=== PATIENT | female | born 1990 | race Caucasian/White ===

== ENCOUNTER 2016-10-23 15:40 | Emergency (ER) | payer MEDICAID ==
[~2016-10-23 15:40] MED LIST: IBUPROFEN600 MG PO; PERCOCET 5-3251 TAB PO; PRENATAL COMPLE1 TAB PO
[2016-10-23 16:27] LABS: BASOPHILS 0.2 % (0-2); EOSINOPHILS 0.9 % (0-7); HEMATOCRIT 40.6 % (36.0-48.0); HEMOGLOBIN 14.1 g/dL (12-16); IMMATURE GRANULOCYTES 0.3 % (0-5); LYMPHOCYTES 25.7 % (15-50); MCH 30.5 pg (26.0-34.0); MCHC 34.7 g/dL (31.0-37.0); MCV 87.9 fL (80.0-100.0); MEAN PLATELET VOLUME 10.2 fL (7.4-10.4); MONOCYTES 5.6 % (2-11); NEUTROPHILS 67.3 % (40-80); RBC 4.62 10x6/uL (4.00-5.40); WBC 18.1 10x3/uL (4.8-10.8)
[2016-10-23 16:33] LABS: PLATELET COUNT 248 10x3/uL (130-400)
[2016-10-23 17:06] LABS: INR 0.91 (0.85-1.17); PROTIME 12.1 SECONDS (11.6-15.0)
[2016-10-23 17:15] LABS: ALKALINE PHOSPHATASE 84 U/L (46-116); ALT (SGPT) 16 U/L (10-68); BILIRUBIN - TOTAL 0.19 mg/dL (0.2-1.3); CHLORIDE - SERUM 101 mmol/L (98-107); POTASSIUM - SERUM 3.6 mmol/L (3.5-5.1); PROTEIN - SERUM 7.3 g/dL (6.4-8.2); SODIUM 139 mmol/L (136-145); UREA NITROGEN 1 mg/dL (7-18)
[2016-10-23 17:23] LABS: CALC OSMOLALITY 272 mosm/kg (275-300); CALCIUM 9.3 mg/dL (8.5-10.1); CREATININE - SERUM 0.7 mg/dL (0.6-1.3); GLUCOSE 84 mg/dL (74-106); eGFR NON AFRICAN AMERICAN > 90 mL/min (90-120)
== END 2016-10-23 18:24 | disposition home or self-care (01) ==
LOC: D.ER 15:40
PROVIDERS: Nurse Practitioner Family
DX: J06.9 Acute upper respiratory infection, unspecified (principal); R05 Cough; R07.81 Pleurodynia

== ENCOUNTER 2016-12-19 18:13 | Emergency (ER) | payer MEDICAID ==
[2016-12-19 19:06] LABS: BASOPHILS 1.1 % (0-2); EOSINOPHILS 1.1 % (0-7); HEMATOCRIT 44.6 % (36.0-48.0); HEMOGLOBIN 15.5 g/dL (12-16); LYMPHOCYTES 43.5 % (15-50); MCHC 34.8 g/dL (31.0-37.0); MCV 86.4 fL (80.0-100.0); MEAN PLATELET VOLUME 10.9 fL (7.4-10.4); MONOCYTES 11.9 % (2-11); NEUTROPHILS 42.4 % (40-80); RBC 5.16 10x6/uL (4.00-5.40); RDW 13.3 % (11.5-14.5); WBC 6.6 10x3/uL (4.8-10.8)
[2016-12-19 19:10] LABS: PLATELET COUNT 147 10x3/uL (130-400)
[2016-12-19 19:32] LABS: CALC OSMOLALITY 277 mosm/kg (275-300); CALCIUM 9.4 mg/dL (8.5-10.1); CARBON DIOXIDE 26.1 mmol/L (21.0-32.0); CHLORIDE - SERUM 102 mmol/L (98-107); CREATININE - SERUM 0.6 mg/dL (0.6-1.3); GLUCOSE 117 mg/dL (74-106); POTASSIUM - SERUM 3.3 mmol/L (3.5-5.1); SODIUM 140 mmol/L (136-145); UREA NITROGEN 8 mg/dL (7-18); eGFR NON AFRICAN AMERICAN > 90 mL/min (90-120)
== END 2016-12-19 20:01 | disposition home or self-care (01) ==
LOC: D.ER 18:13
PROVIDERS: Nurse Practitioner Acute Care
DX: K52.9 Noninfective gastroenteritis and colitis, unspecified (principal); F17.200 Nicotine dependence, unspecified, uncomplicated

== ENCOUNTER 2016-12-30 20:45 | Emergency (ER) | payer MEDICAID ==
[2016-12-30 21:11] LABS: APPEARANCE HAZY (CLEAR); COLOR DK YELLOW (YELLOW)
[2016-12-30 21:12] LABS: BILIRUBIN NEGATIVE (NEGATIVE); GLUCOSE NEGATIVE (NEGATIVE); KETONE NEGATIVE (NEGATIVE); LEUKOCYTE ESTERASE TRACE (NEGATIVE); NITRITE NEGATIVE (NEGATIVE); PROTEIN NEGATIVE (NEGATIVE); SPECIFIC GRAVITY 1.015 (1.005-1.020); UROBILINOGEN NORMAL (NORMAL)
[2016-12-30 21:19] LABS: AMORPHOUS SEDIMENT <1+ /lpf (NONE SEEN); BACTERIA MODERATE /hpf (NONE SEEN); GRANULAR CAST 0-5 /lpf (NONE SEEN); HYALINE CAST 0-5 /lpf (NONE SEEN); MUCUS >1+ /lpf (NONE SEEN); RED CELLS - URINE OCC /hpf (0-5)
[2016-12-30 22:26] LABS: BASOPHILS 1.7 % (0-2); EOSINOPHILS 1.1 % (0-7); HEMATOCRIT 39.9 % (36.0-48.0); HEMOGLOBIN 13.7 g/dL (12-16); IMMATURE GRANULOCYTES 0.5 % (0-5); LYMPHOCYTES 56.4 % (15-50); MCH 29.3 pg (26.0-34.0); MCHC 34.3 g/dL (31.0-37.0); MCV 85.4 fL (80.0-100.0); MEAN PLATELET VOLUME 10.6 fL (7.4-10.4); MONOCYTES 9.9 % (2-11); NEUTROPHILS 30.4 % (40-80); PLATELET COUNT 141 10x3/uL (130-400); RBC 4.67 10x6/uL (4.00-5.40); WBC 10.1 10x3/uL (4.8-10.8)
[2016-12-30 22:33] LABS: HCG SERUM NEGATIVE (NEGATIVE)
[2016-12-30 22:37] LABS: ALKALINE PHOSPHATASE 133 U/L (46-116); ALT (SGPT) 85 U/L (10-68); CALC OSMOLALITY 281 mosm/kg (275-300); CALCIUM 8.5 mg/dL (8.5-10.1); CARBON DIOXIDE 30.3 mmol/L (21.0-32.0); CHLORIDE - SERUM 105 mmol/L (98-107); CREATININE - SERUM 0.8 mg/dL (0.6-1.3); GLUCOSE 107 mg/dL (74-106); POTASSIUM - SERUM 3.7 mmol/L (3.5-5.1); PROTEIN - SERUM 6.9 g/dL (6.4-8.2); SODIUM 142 mmol/L (136-145); UREA NITROGEN 10 mg/dL (7-18); eGFR NON AFRICAN AMERICAN > 90 mL/min (90-120)
== END 2016-12-31 01:11 | disposition home or self-care (01) ==
LOC: D.ER 20:45
PROVIDERS: Emergency Medicine
DX: N39.0 Urinary tract infection, site not specified (principal); F17.200 Nicotine dependence, unspecified, uncomplicated

== ENCOUNTER 2018-01-29 21:01 | Inpatient (IN) | payer MEDICAID ==
[~2018-01-29] VITALS: Ht 167.6 cm; Wt 69.4 kg
--- NOTE | ~2018-01-29 | DS ---
PATIENT:IESHA REYNOSO :89 MEDICAL RECORD: [id number] DISCHARGE SUMMARY ADMISSION DATE: 01/29/18 DISCHARGE DATE: 01/31/18 DATE OF ADMISSION: 01/29/2018 DATE OF DISCHARGE: 01/31/2018 ADMISSION DIAGNOSIS: at term. DISCHARGE DIAGNOSIS: Mother delivered at term. PROCEDURE: Induction of labor with vaginal delivery. ATTENDING: Lita Jensen MD HISTORY OF PRESENT ILLNESS: See the H&P in the chart. SUMMARY OF HOSPITALIZATION: The patient was admitted and underwent induction of labor without incident. The patient delivered and on day #1 is doing well without complaint. The patient will be discharged home on ibuprofen for pain management. We discussed contraception and she has been advised to observe pelvic rest for 6 weeks. Standard precautions have been reviewed. TRANSINT:[id number] Voice Confirmation ID: [id number] DOCUMENT ID: [id number] LITA JENSEN MD at 1615 CC: [id number] DICTATION DATE: 01/31/18 0442 RAG COLLECTOR: 01/31/18 1357 DIS IN 01/31/18 [facility] [address] [place] [address]
--- NOTE | ~2018-01-29 | OP ---
PATIENT NAME: IESHA REYNOSO MEDICAL RECORD: [id number] :89 LOCATION:[id number] ADMISSION DATE:01/29/18 SURGEON: REJI JENSEN MD DATE OF OPERATION: 01/30/2018 PREDELIVERY DIAGNOSIS: at term. POSTDELIVERY DIAGNOSIS: Mother delivered at term. PROCEDURE: Induction of labor with vaginal delivery. ATTENDING: Reji Jensen MD ANESTHETIC: None. FINDINGS: Viable male infant. OLMAN presentation. Shoulder dystocia encountered, relieved with Josh and suprapubic from the left. First-degree laceration without repair of the vaginal mucosa. Apgars were 8 and 9, and the weight is still pending at the time of this dictation. Placenta was delivered spontaneous and intact. ESTIMATED BLOOD LOSS: 300 cc. DISPOSITION: Mother and infant are both recovered in the room. TRANSINT:[id number] Voice Confirmation ID: [id number] DOCUMENT ID: [id number] REJI JENSEN MD at 1445 CC: [id number] DICTATION DATE: 01/30/18923 HYDRAULIC PLUMBER: 01/30/18 1131 ADM IN [facility] [address] [place] [address]
[2018-01-29] MEDS ORDERED: MYCOLOG CREAM15 GM TOPICAL (22:37)
[2018-01-29 22:38] VITALS: BP 106/88; BMI 24.7
[2018-01-29 23:28] LABS: APPEARANCE CLEAR (CLEAR); BILIRUBIN NEGATIVE (NEGATIVE); COLOR YELLOW (YELLOW); GLUCOSE NEGATIVE (NEGATIVE); KETONE NEGATIVE (NEGATIVE); NITRITE NEGATIVE (NEGATIVE); PROTEIN NEGATIVE (NEGATIVE); SPECIFIC GRAVITY 1.005 (1.005-1.020); UROBILINOGEN NORMAL (NORMAL)
[2018-01-29 23:29] LABS: HEMATOCRIT 33.8 % (36.0-48.0); HEMOGLOBIN 11.7 g/dL (12-16); MCH 29.4 pg (26.0-34.0); MCHC 34.6 g/dL (31.0-37.0); MCV 84.9 fL (80.0-100.0); MEAN PLATELET VOLUME 11.5 fL (7.4-10.4); RBC 3.98 10x6/uL (4.00-5.40); RDW 13.7 % (11.5-14.5); WBC 11.5 10x3/uL (4.8-10.8)
[2018-01-30 01:11] LABS: UDS - AMPHET NEGATIVE QUAL (NEGATIVE); UDS - BARB NEGATIVE QUAL (NEGATIVE); UDS - BENZO NEGATIVE QUAL (NEGATIVE); UDS - COCAINE NEGATIVE QUAL (NEGATIVE); UDS - OPIATE NEGATIVE QUAL (NEGATIVE); UDS - PCP NEGATIVE QUAL (NEGATIVE); UDS - THC NEGATIVE QUAL (NEGATIVE)
[2018-01-30 13:43] VITALS: Ht 167.6 cm; Wt 69.4 kg
[2018-01-30 23:30] VITALS: BP 94/56
[2018-01-31 06:16] LABS: RAPID PLASMA REAGIN Non Reactive (Non Reactive)
[2018-01-31 07:00] LABS: MCH 28.4 pg (26.0-34.0); MCHC 32.5 g/dL (31.0-37.0); MEAN PLATELET VOLUME 11.2 fL (7.4-10.4); RDW 13.6 % (11.5-14.5)
[2018-01-31 07:01] LABS: HEMATOCRIT 24.3 % (36.0-48.0); HEMOGLOBIN 7.9 g/dL (12-16); MCV 87.4 fL (80.0-100.0); RBC 2.78 10x6/uL (4.00-5.40); WBC 15.5 10x3/uL (4.8-10.8)
[2018-01-31 08:10] VITALS: BP 109/68
== END 2018-01-31 14:56 | disposition home or self-care (01) | DRG 775 ==
LOC: D.LD 21:01
PROVIDERS: Obstetrics & Gynecology
PROC: 10E0XZZ Delivery of Products of Conception, External Approach (ICD-10-PCS; principal; 2018-01-30)
PROC: 3E033VJ Introduction of Other Hormone into Peripheral Vein, Percutaneous Approach (ICD-10-PCS; 2018-01-30)
PROC: 10907ZC Drainage of Amniotic Fluid, Therapeutic from Products of Conception, Via Natural or Artificial Opening (ICD-10-PCS; 2018-01-30)
DX: O48.0 Post-term pregnancy (principal); O36.0930 Maternal care for other rhesus isoimmunization, third trimester, not applicable or unspecified; O70.0 First degree perineal laceration during delivery; O99.334 Smoking (tobacco) complicating childbirth; O66.0 Obstructed labor due to shoulder dystocia; Z37.0 Single live birth; Z3A.40 40 weeks gestation of pregnancy

== ENCOUNTER 2018-02-08 13:35 | Emergency (ER) | payer MEDICAID ==
[~2018-02-08] VITALS: Ht 167.6 cm; Wt 60.9 kg
[~2018-02-08 13:35] MED LIST changes: +MYCOLOG CREAM15 GM TOPICAL
[2018-02-08 13:46] VITALS: Ht 167.6 cm; Wt 60.9 kg
[2018-02-08] MEDS ORDERED: IBUPROFEN800 MG PO (17:26)
[2018-02-08 17:43] VITALS: BP 1016/66
== END 2018-02-08 17:45 | disposition home or self-care (01) ==
LOC: D.ER 13:35
DX: O87.0 Superficial thrombophlebitis in the puerperium (principal); F17.200 Nicotine dependence, unspecified, uncomplicated

== ENCOUNTER 2018-04-11 08:00 | Outpatient (CLI) | payer MEDICAID ==
[~2018-04-11 08:00] MED LIST changes: +IBUPROFEN800 MG PO
[2018-04-11 11:12] LABS: BASOPHILS 0.3 % (0-2); EOSINOPHILS 2.4 % (0-7); HEMATOCRIT 37.2 % (36.0-48.0); HEMOGLOBIN 11.8 g/dL (12-16); IMMATURE GRANULOCYTES 0.1 % (0-5); LYMPHOCYTES 49.9 % (15-50); MCHC 31.7 g/dL (31.0-37.0); MCV 78.8 fL (80.0-100.0); MEAN PLATELET VOLUME 10.4 fL (7.4-10.4); MONOCYTES 8.4 % (2-11); NEUTROPHILS 38.9 % (40-80); PLATELET COUNT 226 10x3/uL (130-400); RBC 4.72 10x6/uL (4.00-5.40); RDW 14.4 % (11.5-14.5); WBC 7.2 10x3/uL (4.8-10.8)
[2018-04-14 09:41] VITALS: BMI 21.6
== END 2018-04-11 08:01 | disposition home or self-care (01) ==
LOC: D.OPS 08:00 → EDSTATUS 10:30 → D.PAN 10:30 → D.OPS 10:30
PROVIDERS: Obstetrics & Gynecology
DX: Z30.2 Encounter for sterilization (principal); Z01.810 Encounter for preprocedural cardiovascular examination; Z01.811 Encounter for preprocedural respiratory examination; Z01.812 Encounter for preprocedural laboratory examination

== ENCOUNTER 2018-04-14 10:18 | Day surgery (SDC) | payer MEDICAID ==
[~2018-04-14] VITALS: Ht 167.6 cm; Wt 60.8 kg
--- NOTE | ~2018-04-14 | OP ---
PATIENT NAME: IESHA REYNOSO MEDICAL RECORD: [id number] :89 LOCATION:[facility] ADMISSION DATE: SURGEON: LITA JENSEN MD DATE OF OPERATION: 04/14/2018 PREOPERATIVE DIAGNOSIS: Unwanted fertility. POSTOPERATIVE DIAGNOSIS: Unwanted fertility. PROCEDURE PERFORMED: Laparoscopic bilateral tubal occlusion. SURGEON: Lita Jensen MD ANESTHESIOLOGIST: Dr. Pham ANESTHETIC: General. FINDINGS: Unremarkable tubes and ovaries bilaterally. Uterus is retroverted. What was visualized of the abdominal anatomy is unremarkable. SPECIMENS REMOVED: None. SPECIMEN DISPOSITION: Not applicable. ESTIMATED BLOOD LOSS: Minimal. FLUIDS: 700 cc. URINE OUTPUT: Quantity sufficient void prior to this procedure. COMPLICATIONS: None. INDICATIONS: The patient is a 27-year-old multiparous female with unwanted fertility. The patient has been consented for a tubal ligation and understands risks, benefits as well as alternatives. The patient acknowledges risks and wishes to proceed. DESCRIPTION OF PROCEDURE: After informed consent was assured, the patient was taken to the operating room and anesthetic was obtained without difficulty. The patient was prepped and draped in the usual sterile fashion. An incision was made at the umbilicus to accommodate a 5-mm trocar, which was inserted without difficulty and pneumoperitoneum developed. Accessory ports are now placed 2 fingerbreadths above the symphysis. Through this 8-mm port, blunt probe was used to sweep the bowel free of the pelvis. The left tube was followed to its fimbriated end and then a section of the isthmic portion of the tube was selected and a Falope ring is applied. This was repeated on the contralateral side. During application of the right ring, the tube was cut and the distal segment occluded with control of bleeding in the medial section with slow bleeding. A second Falope ring is applied on the proximal segment of the tube occluding the site. Bovie cautery was used to cauterize any raw edges and the device removed. Inspection reveals adequate hemostasis and both proximal and distal sections of the right tube blanched well. The left tube also has blanched with good crease formation. Marcaine was applied over both right and left tubes and the trocars were removed under direct visualization. OPERATIVE REPORT [id number] IESHA REYNOSO Pneumoperitoneum was released and all sites closed with a subcuticular stitch and Dermabond applied. TRANSINT:[id number] Voice Confirmation ID: [id number] DOCUMENT ID: [id number] LITA JENSEN MD at 0655 CC: [id number] DICTATION DATE: 04/14/18 1106 CARBON BRUSHER ASSEMBLER: 04/15/18 0002 [facility] [place] 04/14/18 [id number] [place] [address]
[2018-04-14 09:41] VITALS: BP 100/64; Ht 167.6 cm; Wt 60.8 kg
[2018-04-14 09:59] LABS: HCG URINE NEGATIVE (NEGATIVE)
== END 2018-04-14 13:30 | disposition home or self-care (01) ==
LOC: D.OPS 10:18
PROVIDERS: Obstetrics & Gynecology
DX: Z30.2 Encounter for sterilization (principal); N85.4 Malposition of uterus; Z01.812 Encounter for preprocedural laboratory examination